=== PATIENT | female | born 1980 | race Caucasian/White ===

== ENCOUNTER 2025-07-09 17:05 | Emergency (ER) | payer MEDICAID, SELFPAY ==
--- NOTE | 2025-07-09 17:08 | ED_ITS ---
HPI - General Adult General: Chief complaint: Extremity Problem,Nontraumatic Stated complaint: busted vein, pos blood clot Time Seen by Provider: 07/09/25 17:08 History of Present Illness: 44-year-old female presents emergency ro om she is concerned about a blood clot in her leg. She has varicose veins she bump 1 on her right anterior tibia midshaft has some swelling and tenderness there some of the veins are more prominent. There is no swelling in the calf itself. She has no shortness of breath no chest pain Associated symptoms: Deny chest pain, dyspnea or rash Related Data Allergies Allergy/AdvReac Type Severity Reaction Status Date / Time No Known Allergies Allergy Verified 07/09/25 17:19 Review of Systems Const: Denies: fever(s) or chills Card: Denies: chest pain Resp: Denies: dyspnea GI: Denies: abdominal pain : Denies: dysuria, urinary frequency or urinary urgency Musc: Denies: neck pain or back pain Skin/Breast: Denies: rash Physical Exam Const: COMMON NORMALS: no acute distress GENERAL APPEARANCE: cooperative and comfortable ORIENTATION/CONSCIOUSNESS: Yes awake, Yes oriented to person, Yes oriented to place and Yes oriented to time HENMT: COMMON NORMALS: normocephalic, atraumatic and hearing grossly normal bilaterally HEAD & SCALP: normocephalic and atraumatic Resp: COMMON NORMALS: normal respiratory effort, No retractions, No use of accessory muscles and clear to auscultation bilaterally AUSCULTATION: clear to auscultation bilaterally Cardio: COMMON NORMALS: regular rate, regular rhythm and No murmurs present (Cardio) RATE: regular rate RHYTHM: regular rhythm Extremity: COMMON NORMALS: normal to inspection, capillary refill normal, no clubbing, cyanosis or edema, no calf tenderness and no pedal edema OTHER: Tenderness right anterior tibia with her swollen inflamed superficial varicose veins. Homans negative no swelling in the calf no swelling in the extremity Neuro: SENSORIUM/ORIENTATION: Yes oriented to person, Yes oriented to place and Yes oriented to time Skin: COMMON NORMALS: no rashes or lesions noted GENERAL SKIN EXAM: no rashes or lesions noted Course Vital Signs: Vital signs: Vital Signs Temperature 98.1 F 07/09/25 17:14 Pulse Rate 63 07/09/25 17:14 Respiratory Rate 17 07/09/25 17:14 Blood Pressure 94/62 07/09/25 17:14 Pulse Oximetry 99 07/09/25 17:14 Oxygen Delivery Me thod Room Air 07/09/25 17:14 MDM - General Adult Medical Decision Making Superficial thrombi lightest no signs of deep vein thrombosis. She has a very specific area of superficial, palpable tenderness. Elevate compression anti- inflammatories follow-up as needed Medical Records I reviewed the patient's medical records. Lab Data I reviewed the patient's lab results. No radiology studies performed this visit Discharge Plan Discharge Patient Disposition: Home Clinical Impression: Superficial thrombophlebitis Condition: Stable Discharge Orders: Discharge ED (Routine); Ordered 07/09/25 Ordered By: Marcellus Post Referrals: Ángel Franco MD [Family Provider, Family Practice] Discharge Diet: Usual diet Discharge Activity: Resume usual activity Patient Instructions: Superficial Thrombophlebitis (ED), Opioid Safety, Pain Management, Patient Portal & Danyel Instructions Activity Restrictions/Additional Instructions: Thank you for choosing [facility] for your healthcare needs today. It is very important that you follow up as instructed or that you return to the Emergency Department should you have concerns or if your condition changes or worsens in any way. Emergency department visits are focused on emergent conditions, in some cases you may require further evaluation on an outpatient basis. You were seen in the emergency room with superficial thrombophlebitis. This is inflammation of superficial veins. This can be treated with elevation and compression moist heat and anti-inflammatory such as Aleve or ibuprofen (Please note that included in your discharge packet is information concerning opioid safety and pain management. This information is given to all patients were discharged from the ER regardless of their discharge diagnosis or the medicines they usually take or are prescribed.) Print Language: Austrian Coding Level of Care Code ED Waste Recycler for Leena Hughes
[2025-07-09 17:14] VITALS: BP 94/62; PULSE 63; RESP 17; TEMP 36.7; O2SAT 99; BMI 17.5
== END 2025-07-09 17:44 | disposition home or self-care (01) ==
PROVIDERS: Emergency Provider Family Medicine; Family Provider Family Medicine
DX: I80.01 Phlebitis and thrombophlebitis of superficial vessels of right lower extremity (principal)
CPT/HCPCS: 99282

== ENCOUNTER 2025-08-14 15:49 | Emergency (ER) | payer MEDICAID, SELFPAY ==
[2025-08-14 15:57] VITALS: BP 115/73; PULSE 66; RESP 18; TEMP 36.8; O2SAT 100
--- NOTE | 2025-08-14 16:37 | USR_ITS ---
PROCEDURE INFORMATION: Exam: US Duplex Right Lower Extremity Veins, Limited Exam date and time: 08/14/2025 4:55 PM Age: 44 years old Clinical indication: Pain; Leg, lower; Right; Additional info: Hard knot in RT leg, pain TECHNIQUE: Imaging protocol: Real-time duplex ultrasound of the right extremity with 2-D escudero scale, color Doppler flow and spectral waveform analysis including responses to compression and other maneuvers (when performed) with image documentation. Limited exam was focused on the right lower extremity veins. COMPARISON: No relevant prior studies available. FINDINGS: Right deep veins: Unremarkable. The common femoral, femoral, proximal profunda femoral and popliteal veins are patent without thrombus. Normal Doppler waveforms. Normal compressibility and/or augmentation response. Superficial veins: Greater saphenous vein at the saphenofemoral junction is patent without thrombus. Soft tissues: Unremarkable. US/[place] [address] IMPRESSION: No evidence of deep vein thrombosis.
--- NOTE | 2025-08-15 01:13 | ED_ITS ---
Documented by User: [email or web address] Mccray 08/15/25 01:15 HPI - General Adult General: Chief complaint: General Medical Stated complaint: R Leg Pain Patient States her vein is hard Time Seen by Provider: 08/14/25 17:28 Source: patient Mode of arrival: ambulatory Limitations: no limitations History of Present Illness: Patient is a 44-year-old female who presents to the emergency department complaining of worsening varicose veins. States that she has been seen here in the emergency department for the same issue and has DVT ruling this out. Also states she has had vein stripping procedures on the same right lower extremity. Primarily states that most of her pain is to her inner thigh on the right leg, she has been wearing compression stockings but only up to the knee. States that pain is worse in the morning if she gets out of bed. Has not been using heat, no other medications reported. No use of blood thinner. Denies any trauma. No shortness of breath. MD complaint: Pain from varicose veins Associated symptoms: Deny chest pain, dyspnea, headache(s), nausea, rash, palpitations or vomiting Related Data Allergies Allergy/AdvReac Type Severity Reaction Status Date / Time No Known Allergies Allergy Verified 07/09/25 17:19 Review of Systems General: Reports: 10 or more systems reviewed and unremarkable except in HPI and below Const: Denies: fever(s), chills or fatigue Eyes: Denies: change in vision ENMT: Denies: throat pain, ear or mastoid pain or nasal discharge Card: Denies: chest pain, palpitations, swelling of feet/ankles or lightheadedness Resp: Denies: dyspnea, productive cough or wheezing GI: Denies: abdominal pain, nausea, vomiting, diarrhea or constipation : Denies: flank pain, difficulty voiding, dysuria or urinary frequency Musc: Reports: extremity pain (Right lower); Denies: neck pain, back pain or joint pain Skin/Breast: Denies: rash Neuro: Denies: headache(s), numbness in extremities or weakness in extremities Physical Exam Const: COMMON NORMALS: no acute distress, patient oriented x3, no limitations, healthy appearing, alert and well nourished HENMT: COMMON NORMALS: normocephalic and atraumatic HEAD & SCALP: normocephalic and atraumatic Neck/C-Spine: COMMON NORMALS: full ROM, supple and no meningeal signs Resp: COMMON NORMALS: normal respiratory effort, No use of accessory muscles and clear to auscultation bilaterally AUSCULTATION: clear to auscultation bilaterally Cardio: COMMON NORMALS: regular rate and regular rhythm RATE: regular rate RHYTHM: regular rhythm Extremity: COMMON NORMALS: full ROM, capillary refill normal, no joint enlargement and no clubbing, cyanosis or edema NARRATIVE EXTREMITY EXAM: Numerous varicose veins to the right lower extremity. Distal neurovascular exam is intact. No calf tenderness. Neuro: COMMON NORMALS: patient oriented x3, moves all extremities, no focal motor deficits and no sensory deficits noted SENSORIUM/ORIENTATION: Yes alert MENINGEAL SIGNS: Yes no meningeal signs Skin: COMMON NORMALS: no rashes or lesions noted GENERAL SKIN EXAM: no rashes or lesions noted Course Vital Signs: Vital signs: Vital Signs Temperature 98.2 F 08/14/25 15:57 Pulse Rate 66 08/14/25 15:57 Respiratory Rate 18 08/14/25 15:57 Blood Pressure 115/73 08/14/25 15:57 Pulse Oximetry 100 08/14/25 15:57 Oxygen Delivery Me thod Room Air 08/14/25 15:57 MDM - General Adult Medical Decision Making Patient presenting with pain to varicose veins right lower extremity, states that she was make sure she is not having a DVT due to the acute worsening. Neurovascular status intact she does have numerous varicosities. Duplex ultrasound does not show any DVT and thus will not start on anticoagulants here. She has required vein stripping procedure in the past, I feel she would benefit best by seeing vascular surgery again but otherwise does not require any further treatment here in the ED. In the meantime I told her to begin wearing compression more religiously and taking further conservative measures to improve her symptoms. Lab Data Radiology Impressions Venous Duplex 08/14/25 16:37 IMPRESSION: No evidence of deep vein thrombosis. All radiology interpretation(s) finalized by discharge Discharge Plan Discharge Patient Disposition: Home Clinical Impression: Superficial thrombophlebitis Qualifiers: Superficial thrombophlebitis-Involved body area: lower extremity Laterality: right Qualified Code(s): I80.01 - Phlebitis and thrombophlebitis of superficial vessels of right lower extremity Condition: Stable Discharge Orders: Discharge ED (Routine); Ordered 08/14/25 Ordered By: Amanuel Mckeon Patient Instructions: Patient Portal & Danyel Instructions Activity Restrictions/Additional Instructions: Superficial Thrombophlebitis Discharge Diagnosis: Superficial thrombophlebitis of the right lower extremity. Instructions: - Symptom Management: Use warm compresses and elevate the affected leg to help reduce pain and swelling. Nonsteroidal anti-inflammatory drugs (NSAIDs), such as ibuprofen, may be taken as directed for pain and inflammation, unless con traindicated. - Compression Therapy: Wearing elastic compression stockings may help improve symptoms and reduce venous stasis. Thigh-length stockings (23-32 mm Hg) are commonly used, but clinical benefit is modest. - Activity: Remain active as tolerated. Avoid prolonged immobility. - Monitoring: Watch for increased pain, swelling, redness, or extension of symptoms up the leg. If symptoms worsen, or if you develop new shortness of breath or chest pain, seek medical attention immediately, as these may indicate progression to deep vein thrombosis (DVT) or pulmonary embolism (PE). - Medication Escalation: If symptoms persist or worsen after 7 days of conservative therapy, or if the affected vein is longer than 5 cm or close (within 3 cm) to a deep vein, systemic anticoagulation may be indicated. This will be determined at follow-up. - Follow-Up: Schedule an appointment with your primary care provider within 1 week to reassess symptoms and discuss the need for further imaging (such as venous ultrasound) or escalation of therapy. - Vascular Surgery Consultation: Discuss with your primary care provider whether referral to vascular surgery is needed, especially if symptoms persist, if there is evidence of venous reflux, or if procedural intervention is considered. - Ultrasound: If symptoms worsen or do not improve, repeat venous ultrasound may be recommended to assess for extension or progression. - Prevention: Avoid risk factors for venous stasis, such as prolonged sitting or standing. Maintain hydration and regular movement. When to Seek Immediate Care: - Sudden increase in leg swelling, redness, or pain - New shortness of breath or chest pain Contact Information: For questions or concerns, contact your primary care provider. Summary: Most cases of superficial thrombophlebitis improve with conservative management. Close follow-up is important to monitor for complications and determine if further treatment or specialist referral is needed. Print Language: [place] Coding Level of Care Code ED Economics Instructor for [employer] Fwd Documented by User: Marcellus Post DO 08/15/25 06:01 HPI - General Adult General: Chief complaint: General Medical Stated complaint: R Leg Pain Patient States her vein is hard Time Seen by Provider: 08/14/25 17:28 Related Data Allergies Allergy/AdvReac Type Severity Reaction Status Date / Time No Known Allergies Allergy Verified 07/09/25 17:19 Course Vital Signs: Vital signs: Vital Signs Temperature 98.2 F 08/14/25 15:57 Pulse Rate 66 08/14/25 15:57 Respiratory Rate 18 08/14/25 15:57 Blood Pressure 115/73 08/14/25 15:57 Pulse Oximetry 100 08/14/25 15:57 Oxygen Delivery Me thod Room Air 08/14/25 15:57 MDM - General Adult Medical Decision Making Patient presenting with pain to varicose veins right lower extremity, states t hat she was make sure she is not having a DVT due to the acute worsening. Neurovascular status intact she does have numerous varicosities. Duplex ultrasound does not show any DVT and thus will not start on anticoagulants here. She has required vein stripping procedure in the past, I feel she would benefit best by seeing vascular surgery again but otherwise does not require any further treatment here in the ED. In the meantime I told her to begin wearing compression more religiously and taking further conservative measures to improve her symptoms. Chart reviewed and patient discussed with midlevel. Agree with assessment and plan. Lab Data Radiology Impressions Venous Duplex 08/14/25 16:37 IMPRESSION: No evidence of deep vein thrombosis. Discharge Plan Discharge Patient Disposition: Home Clinical Impression: Superficial thrombophlebitis Qualifiers: Superficial thrombophlebitis-Involved body area: lower extremity Laterality: right Qualified Code(s): I80.01 - Phlebitis and thrombophlebitis of superficial vessels of right lower extremity Condition: Stable Discharge Orders: Discharge ED (Routine); Ordered 08/14/25 Ordered By: Amanuel Mckeon Patient Instructions: Patient Portal & Danyel Instructions Activity Restrictions/Additional Instructions: Superficial Thrombophlebitis Discharge Diagnosis: Superficial thrombophlebitis of the right lower extremity. Instructions: - Symptom Management: Use warm compresses and elevate the affected leg to help reduce pain and swelling. Nonsteroidal anti-inflammatory drugs (NSAIDs), such as ibuprofen, may be taken as directed for pain and inflammation, unless contraindicated. - Compression Therapy: Wearing elastic compression stockings may help improve symptoms and reduce venous stasis. Thigh-length stockings (23-32 mm Hg) are commonly used, but clinical benefit is modest. - Activity: Remain active as tolerated. Avoid prolonged immobility. - Monitoring: Watch for increased pain, swelling, redness, or extension of symptoms up the leg. If symptoms worsen, or if you develop new shortness of breath or chest pain, seek medical attention immediately, as these may indicate progression to deep vein thrombosis (DVT) or pulmonary embolism (PE). - Medication Escalation: If symptoms persist or worsen after 7 days of cons ervative therapy, or if the affected vein is longer than 5 cm or close (within 3 cm) to a deep vein, systemic anticoagulation may be indicated. This will be determined at follow-up. - Follow-Up: Schedule an appointment with your primary care provider within 1 week to reassess symptoms and discuss the need for further imaging (such as venous ultrasound) or escalation of therapy. - Vascular Surgery Consultation: Discuss with your primary care provider whether referral to vascular surgery is needed, especially if symptoms persist, if there is evidence of venous reflux, or if procedural intervention is considered. - Ultrasound: If symptoms worsen or do not improve, repeat venous ultrasound may be recommended to assess for extension or progression. - Prevention: Avoid risk factors for venous stasis, such as prolonged sitting or standing. Maintain hydration and regular movement. When to Seek Immediate Care: - Sudden increase in leg swelling, redness, or pain - New shortness of breath or chest pain Contact Information: For questions or concerns, contact your primary care provider. Summary: Most cases of superficial thrombophlebitis improve with conservative management. Close follow-up is important to monitor for complications and d etermine if further treatment or specialist referral is needed. Print Language: [place] Coding Level of Care Code ED Economics Instructor for Leena Hughes
== END 2025-08-14 17:59 | disposition home or self-care (01) ==
PROVIDERS: Emergency Provider Physician Assistant
DX: I80.01 Phlebitis and thrombophlebitis of superficial vessels of right lower extremity (principal)
CPT/HCPCS: 93971; 99284